=== PATIENT | female | born 1960 | race Caucasian/White ===

== ENCOUNTER → 2016-10-02 09:08 | Day surgery (SDC) | payer BC ==
[~2016-10-02 09:08] MED LIST: Buffered Lidocaine 1% SYR 3ML* 3 ML/SYR SYRINGE INTRADERM ONE; Buffered Lidocaine 1% SYR 3ML* 3 ML/SYR SYRINGE ONE; Bupivacaine 0.25% SDV* 30 ML ONE; Dexamethasone IV* 4 MG/ML 1 ML (4 MG) ONE; Famotidine IV* 10 MG/ML 2 ML (20 mg) IV ONE; Famotidine IV* 10 MG/ML 2 ML (20 mg) ONE; KETAMINE HCL* 50 MG/ML 10 ML VIAL ONE; Ketorolac INJ* 30 MG/ML 1 ML VIAL ONE; Labetalol IV* 5 MG/ML 20 ML VIAL ONE; Lidocaine 1% INJ* 10 MG/ML 30 ML SDV ONE; Lidocaine 2% PF* 10 ML AMP ONE; Midazolam* 1 MG/ML 5 ML VIAL (5 MG) ONE; Ondansetron INJ* 2 MG/ML VIAL ONE; PROCHLORPERAZINE INJ 5 MG/ML 2 ML VIAL IV PRN; Propofol* 10 MG/ML 20 ML BTL IV PUSH ONE; fentaNYL* 50 MCG/ML 2 ML VIAL (100 MCG VIAL) IV PRN; fentaNYL* 50 MCG/ML 2 ML VIAL (100 MCG VIAL) ONE; oxyCODONE/Acetamin 5/325 MG* TAB PO PRN
[2016-10-02 11:07] VITALS: BP 131/70
--- NOTE | 2016-10-03 06:08 | OP ---
DATE OF PROCEDURE: 10/02/16 - [facility] DATE OF : 62 SURGEON: Fabián Ramos DPM. ANESTHESIOLOGIST: Blu Fallon MD ANESTHESIA: MAC local. PRE-OP DIAGNOSIS: Epidermoid cyst, right fourth toe. POST-OP DIAGNOSES: Epidermoid cyst, right fourth toe. OPERATIVE PROCEDURE: Excision of the epidermoid cyst, right fourth toe. ESTIMATED BLOOD LOSS: Less than 10 cc. IV FLUIDS: LR 1000 cc. DRAINS: None. SPECIMENS: Epidermoid cyst, right fourth toe. DESCRIPTION OF PROCEDURE: The patient was taken to the operating room, was placed in a supine position. Time-out was called and OR team agreed. The right fourth toe was then blocked with 3 cc of 1% lidocaine plain in a ring block fashion. The base of the toe, the foot was then prepped and draped in sterile manner. The right foot was then exsanguinated with an Esmarch bandage and the cuff was then inflated to 250 mmHg. Attention was then paid to the distal aspect of the right fourth toe where there is epidermoid cyst, size of 0.8 x 3.7 cm. A semi-elliptical incision was made in a fishmouth fashion with a #15 blade with a minimum of 2 mm margins cephalad and caudal, and the lateral and medial margins have at least 5 to 7 mm margins to complete the semi- elliptical incision. I proceeded to dissect down to subcutaneous tissue, remove the dermal lesion, inspected the underlying subcutaneous, it does not appear to go beyond the dermis. Once it was deemed that the entire lesion was removed and the procedure was then completed, I irrigated the site and closed the wound with 4-0 nylon in simple sutures. The patient tolerated the procedure well and the cuff was deflated. I injected a postsurgical local block with 2 cc of 0.25% Marcaine plain and 1 cc of 4 mg of dexamethasone phosphate . The patient tolerated the procedure well. The toe was then placed in a dry sterile dressing. The patient was then taken to Recovery in stable condition, was then later discharged in stable condition as well. I will follow her up in my office in 3 days. [id number]/CPS #: [id number] MTDD
== END | disposition home or self-care (01) ==
LOC: OR 09:08
PROVIDERS: ATTEND Podiatrist
DX: D23.71 Other benign neoplasm of skin of right lower limb, including hip (principal); F17.210 Nicotine dependence, cigarettes, uncomplicated; E78.5 Hyperlipidemia, unspecified
CPT/HCPCS: 88304; J1100; J1885; J2001; J2250; J2405; J2704; J3010

== ENCOUNTER 2017-06-19 11:04 | Observation (INO) | payer BC ==
[2017-06-19] MEDS ORDERED: Albuterol/Ipratropium NEB.SOL* Albuterol 2.5 MG/Ipratropium 0.5 MG 3 ML INH ONE ×3 (12:01→14:45)
[2017-06-19] MEDS ORDERED: Albuterol/Ipratropium NEB.SOL* Albuterol 2.5 MG/Ipratropium 0.5 MG 3 ML ONE (12:12)
[2017-06-19 12:41] LABS: Hematocrit 41 % (35-47); Hemoglobin 13.4 g/dl (12.0-16.0); Mean Corpuscular HGB Conc 33 g/dl (31-36); Mean Corpuscular Hemoglobin 29 pg (27-31); Mean Corpuscular Volume 88 fL (80-97); Mean Platelet Volume 10 um3 (7.4-10.4); Red Blood Count 4.59 10^6/ul (4.0-5.4); Red Cell Distribution Width 15 % (10.5-15); White Blood Count 14.1 10^3/ul (3.5-10.8)
--- NOTE | 2017-06-19 12:53 | RAD ---
INDICATION: 3 weeks cough, shortness of breath. Bronchitis. History of tobacco use. Cardiovascular disease. COMPARISON: December 03, 2013 TECHNIQUE: Dual energy PA and routine lateral views of the chest were obtained. REPORT: Both diffuse mild prominence of the interstitial markings and patchy rarefaction of the mid to upper lung zone interstitial markings. No alveolar consolidation concerning for pneumonia. Negative for focal pulmonary lesions. Negative for pleural effusion or pneumothorax. The heart, pulmonary vasculature, and mediastinal contours are unremarkable. IMPRESSION: 1. No evidence for pneumonia. 2. Chronic mildly coarse interstitial markings and patchy rarefaction of upper lung zone markings likely reflecting chronic obstructive pulmonary disease and emphysema.
[2017-06-19 13:22] LABS: Albumin 3.7 g/dL (3.2-5.2); BUN/Creatinine Ratio 15.1 (8-20); Calcium 9.1 mg/dL (8.6-10.3); EGFR African American 106.1 (>60); EGFR Non-African American 82.5 (>60); Globulin 2.7 g/dL (2-4); Potassium 4.2 mmol/L (3.5-5.0); Total Bilirubin 0.5 mg/dL (0.2-1.0); Total Protein 6.4 g/dL (6.4-8.9)
[2017-06-19] MEDS ORDERED: methylPREDNISolone 125 MG* 2 ML VIAL IV ONE (13:40)
[2017-06-19] MEDS ORDERED: Albuterol/Ipratropium NEB.SOL* Albuterol 2.5 MG/Ipratropium 0.5 MG 3 ML INH PRN (18:07)
[2017-06-19] MEDS ORDERED: Acetaminophen TAB* 325 MG PO PRN (18:07)
[2017-06-19] MEDS ORDERED: guaiFENesin LIQ* 100 MG/5 ML UDC PO PRN (18:08)
[2017-06-19] MEDS ORDERED: Benzonatate CAP* 100 MG PO PRN (18:08)
[2017-06-19] MEDS ORDERED: Docusate CAP* 100 MG PO PRN (18:11)
[2017-06-19] MEDS ORDERED: Levofloxacin 750 MG IVPREMIX(* 750 MG/150 ML BAG IVPB SCH (19:00)
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
[2017-06-19] MEDS: methylPREDNISolone 125 MG* 2 ML VIAL IV SCH (19:29)
[2017-06-19] MEDS ORDERED: methylPREDNISolone SOD 40 MG* 1 ML VIAL IV SCH (20:00)
[2017-06-19] MEDS: Heparin VIAL(*) 5000 UNITS/ML VIAL (FIVE THOUSAND) SUBCUT SCH (20:21)
--- NOTE | 2017-06-19 22:06 | HP ---
CC: Dr. Matteo Parikh* [facility] MEDICINE HISTORY AND PHYSICAL: DATE OF ADMISSION: 06/19/17 PRIMARY CARE PHYSICIAN: Dr. Matteo Parikh. ATTENDING PHYSICIAN: Dr. Harry Lees* (dictation provided by Nancy Estrada NP ). CHIEF COMPLAINT: Cough and shortness of breath. HISTORY OF PRESENT ILLNESS: Ms. Ramirez is a 57-year-old female, who is a long- term smoker, who suspects she has COPD, though she does not have a diagnosis as such. She also has history of hyperlipidemia and depression. She states she has been feeling unwell for about 3 weeks, although she has been feeling much worse over the past 2 weeks. She reports having a cough, shortness of breath, and wheezing. She has had no fever. She went to see the PA, Mr. Noble, on 06/14/17, at which time, she was started on albuterol, prednisone, and amoxicillin. She has taken that with little effect. In fact, she states that she is feeling worse. She ultimately decided to come to the emergency room today when it was the third night in which she was not able to sleep very well at all due to persistent cough and shortness of breath. She denies any other complaints. She has no chest pain. She has no nausea, vomiting, abdominal pain. She has been tolerating oral intake well. In the emergency room, Ms. Ramirez had a chest x-ray, which showed no infiltrate. She had labs that showed leukocytosis of 14.1. She was noted to have an O2 saturation of 87% on room air, but she did respond well to 2 L nasal cannula with O2 saturation up to 93%. She is tachycardic with a heart rate into the 120s, blood pressure stable systolically at about 115. PAST MEDICAL HISTORY: 1. Questionable COPD with long-term smoking history. 2. Hyperlipidemia. 3. Depression. 4. History of partial hysterectomy due to fibroid tumor. MEDICATIONS: 1. B-complex with C 1 cap p.o. q.a.m. 2. Ibuprofen 200 mg p.o. daily p.r.n. 3. Loratadine with pseudoephedrine 1 tab p.o. q.a.m. 4. Naproxen 220 mg p.o. daily p.r.n. 5. Butler-3 fatty acid 2000 mg p.o. q.a.m. 6. Wheat dextrin 1 teaspoonful p.o. daily p.r.n. 7. Atorvastatin 40 mg p.o. daily. 8. Bupropion 100 mg p.o. q.a.m. 9. Docusate 100 mg p.o. q.a.m. 10. Latuda 20 mg p.o. q.p.m. 11. Sertraline 45 mg p.o. q.a.m. ALLERGIES: To ERYTHROMYCIN. FAMILY HISTORY: The patient reports her mother related to brain aneurysm at age 66 and father related to a stroke at 73. SOCIAL HISTORY: The patient is a long-term smoker, started at age 15. She is currently in about 10 cigarettes per day, although she is only down to about 1 a day while she has been ill. She reports alcohol intake about 5 shots of liquor per week. She is employed at a local [employer]. She states that her friend, Samia Saxena, would be the healthcare proxy. REVIEW OF SYSTEMS: A 14-point review of systems was completed with Ms. Ramirez and all those mentioned above were negative. PHYSICAL EXAMINATION GENERAL: Ms. Ramirez is sitting in bed. She is in no acute distress, but coughing frequently. VITAL SIGNS: Temperature 98.4, heart rate 119, respiratory rate 22, O2 saturation 90% on 2 L nasal cannula, blood pressure 112/59. LUNGS: Coarse bilaterally with wheezing and rhonchi throughout. There is good aeration and there is no accessory muscle use. She is able to speak in complete sentences. HEART: S1, S2. No murmur, rub, or gallop, and regular. ABDOMEN: Soft, nontender, with bowel sounds positive x4. EXTREMITIES: No cyanosis. No edema. NEURO: She is alert, she is oriented x3. She moves all extremities equally. There is no facial asymmetry or focal weakness. Extraocular movements are intact. SKIN: Intact. DIAGNOSTIC STUDIES/LAB DATA: Sodium 133, potassium 4.2, chloride 100, serum bicarbonate 27, BUN 11, creatinine 0.73, glucose 148, lactic acid 1.2. WBC 14.1 , hemoglobin 13.4, hematocrit 41, platelet count 317. The chest x-ray is read as clear with no evidence of infiltrate. ASSESSMENT AND PLAN: Ms. Ramirez is a 57-year-old female with long-term smoking history, who presents today to the hospital with persistent cough, wheezing, and shortness of breath, found to be hypoxic on room air, despite treatment for 5 days with albuterol, prednisone, and amoxicillin outpatient. Our plans are for observation in the hospital for the followin. Acute on chronic bronchitis: The patient states that she has had several episodes in the past like this and I thought she is very prone to bronchitis. I suspect that she does have a component of chronic obstructive pulmonary disease. Plans for her to be treated with Solu-Medrol as she has already had prednisone outpatient 60 mg q.8. She will have Levaquin, DuoNeb nebulizers, and oxygen p.r.n. 2. Depression. Continue home Latuda and sertraline. 3. DVT prophylaxis. With heparin subcu. 4. Code status is full code. TIME SPENT: Approximately 60 minutes was spent in admission of this patient, more than half of the time was spent with the patient at the bedside reviewing the events leading up to this hospitalization, performing the physical examination, and reviewing the plan of care. NANCY ESTRADA NP [id number]/CPS #: [id number] DEE
--- NOTE | 2017-06-19 23:49 | PN ---
I, Brandy Justice, scribed for Dewayne Lowery MD on 06/19/17 at 1403 . Progress Note - Progress Note Date of Service: 06/19/17 Note: Sign off from Bovalino. Upon examination: Diffuse wheezes, borderline tachycardic at 105 BPM, and 02sat of 89/90. She was given more duonebs and some solumedrol but her clinical condition did not really change. Consults: Consult with Dr. Lees (hospitalist) at 1714. He agrees to admit pt. She will be admitted in stable condition with a diagnosis of COPD exacerbation. The documentation as recorded by the ishanibeReshma Emily accurately reflects the service I personally performed and the decisions made by me, Dewayne Lowery MD.
[2017-06-20] MEDS: Heparin VIAL(*) 5000 UNITS/ML VIAL (FIVE THOUSAND) SUBCUT SCH (05:00)
[2017-06-20] MEDS: methylPREDNISolone 125 MG* 2 ML VIAL IV SCH ×2 (05:00→12:05)
[2017-06-20] MEDS ORDERED: Atorvastatin* 40 MG TAB PO SCH (09:00)
[2017-06-20] MEDS ORDERED: Sertraline* 25 MG TAB PO SCH (09:00)
[2017-06-20] MEDS ORDERED: buPROPion SR TAB.SR* 100 MG PO SCH (09:00)
[2017-06-20 12:08] VITALS: BP 134/72
--- NOTE | 2017-06-20 12:12 | PN ---
Subjective Date of Service: 06/20/17 Interval History: Ms. Ramirez states that she is feeling much better today. She has ambulated around the unit without significant SETHI or any hypoxia. She denies other complaint including chest pain, nausea or abdominal pain. She is tolerating oral intake well. Objective Active Medications: Acetaminophen (Tylenol Tab*) 650 mg PO Q6H PRN Albuterol/Ipratropium (Duoneb (Albuterol 2.5 Mg/Ipratropium 0.5 Mg)) 1 neb INH Q4H PRN Atorvastatin Calcium (Lipitor*) 40 mg PO DAILY SEAN Benzonatate (Tessalon Cap*) 100 mg PO BID PRN Bupropion HCl (Wellbutrin Sr Tab*) 100 mg PO QAM SEAN Docusate Sodium (Colace Cap*) 100 mg PO QAM PRN Guaifenesin (Robitussin*) 5 ml PO Q6H PRN Heparin Sodium (Porcine) (Heparin Vial(*)) 5,000 units SUBCUT Q8HR SEAN Levofloxacin/Dextrose (Levaquin 750 Mg Ivpremix(*)) 750 mg in 150 mls @ 100 mls /hr IVPB Q24H SEAN Lurasidone HCl (Latuda (Nf)) 20 mg PO QPM SEAN Methylprednisolone Sodium Succinate (Solu-Medrol 125mg *) 60 mg IV Q8H [facility] Vital Signs 06/19/17 06/19/17 06/19/17 19:12 19:43 19:49 Temperature 98.0 F 98.0 F Pulse Rate 122 111 122 Respiratory 18 16 20 Rate Blood Pressure 141/79 141/79 (mmHg) O2 Sat by Pulse 95 94 95 Oximetry 06/19/17 06/19/17 06/20/17 20:13 23:22 00:00 Temperature 98.1 F 98.2 F Pulse Rate 107 82 Respiratory 12 15 Rate Blood Pressure 134/64 132/66 (mmHg) O2 Sat by Pulse 94 97 94 Oximetry 06/20/17 06/20/17 06/20/17 03:46 05:24 07:54 Temperature 98.5 F 98.4 F Pulse Rate 82 84 90 Respiratory 15 16 18 Rate Blood Pressure 136/60 138/76 (mmHg) O2 Sat by Pulse 92 99 97 Oximetry 06/20/17 08:30 Temperature Pulse Rate 84 Respiratory 16 Rate Blood Pressure (mmHg) O2 Sat by Pulse 99 Oximetry Oxygen Devices in Use Now: None Appearance: Female sitting up in bed in NAD Eyes: No Scleral Icterus Ears/Nose/Mouth/Throat: Mucous Membranes Moist Neck: Trachea Midline Respiratory: Symmetrical Chest Expansion and Respiratory Effort, - - Minimal wheezing Cardiovascular: NL Sounds; No Murmurs; No JVD, No Edema Abdominal: NL Sounds; No Tenderness; No Distention Lymphatic: No Cervical Adenopathy Extremities: No Edema Skin: No Rash or Ulcers Neurological: Alert and Oriented x 3, NL Muscle Strength and Tone Nutrition: Taking PO's Result Diagrams: 06/19/17 12:30 06/19/17 12:30 Additional Lab and Data: Lab Results 06/19/17 06/19/17 06/19/17 Range/Units 12:30 12:30 12:30 WBC 14.1 H (3.5-10.8) 10^3/ul RBC 4.59 (4.0-5.4) 10^6/ul Hgb 13.4 (12.0-16.0) g/dl Hct 41 (35-47) % MCV 88 (80-97) fL MCH 29 (27-31) pg MCHC 33 (31-36) g/dl RDW 15 (10.5-15) % Plt Count 317 (150-450) 10^3/ul MPV 10 (7.4-10.4) um3 Neut % (Auto) 75.3 (38-83) % Lymph % (Auto) 16.7 L (25-47) % [place] % (Auto) 7.3 (1-9) % Eos % (Auto) 0.4 (0-6) % Baso % (Auto) 0.3 (0-2) % Absolute Neuts (auto) 10.6 H (1.5-7.7) 10^3/ul Absolute Lymphs (auto) 2.3 (1.0-4.8) 10^3/ul Absolute Monos (auto) 1.0 H (0-0.8) 10^3/ul Absolute Eos (auto) 0.1 (0-0.6) 10^3/ul Absolute Basos (auto) 0 (0-0.2) 10^3/ul Absolute Nucleated RBC 0.01 10^3/ul Nucleated RBC % 0 Sodium 133 (133-145) mmol/L Potassium 4.2 (3.5-5.0) mmol/L Chloride 100 L (101-111) mmol/L Carbon Dioxide 27 (22-32) mmol/L Anion Gap 6 (2-11) mmol/L BUN 11 (6-24) mg/dL Creatinine 0.73 (0.51-0.95) mg/dL Est GFR ( Amer) 106.1 (>60) Est GFR (Non-Af Amer) 82.5 (>60) BUN/Creatinine Ratio 15.1 (8-20) Glucose 148 H (70-100) mg/dL Lactic Acid 1.2 (0.5-2.0) mmol/L Calcium 9.1 (8.6-10.3) mg/dL Total Bilirubin 0.50 (0.2-1.0) mg/dL AST 14 (13-39) U/L ALT 18 (7-52) U/L Alkaline Phosphatase 79 (34-104) U/L Total Protein 6.4 (6.4-8.9) g/dL Albumin 3.7 (3.2-5.2) g/dL Globulin 2.7 (2-4) g/dL Albumin/Globulin Ratio 1.4 (1-3) Microbiology and Other Data: Microbiology 06/19/17 20:20 Influenza Types A,B Antigen (RICARDO) - Final Nasal Specimen received for Influenza A/B Molecular testing Assess/Plan/Problems-Billing Assessment: Ms. Ramirez is a 57 yo female with a PMH of chronic bronchitis and continued smoking who was placed on observation on 06/19/17 for COPD excarbation. - Patient Problems (1) COPD exacerbation Comment: - Much improved overnight. - Continue prednisone taper, levaquin, albuterol and guaifenesin. - Also starting spiriva, recommend to see Dr. Marcano. (2) Hyperlipidemia Comment: - Continue atorvastatin. (3) Depression Comment: - Continue sertraline and latuda. (4) DVT prophylaxis Comment: - Heparin SQ. (5) Full code status Status and Disposition: OBV. Discharge to home.
[2017-06-20] MEDS ORDERED: LURASIDONE 20 MG PO SCH (18:00)
--- NOTE | 2017-06-20 23:28 | DS ---
CC: Dr. Parikh* DISCHARGE SUMMARY: DATE OF ADMISSION: 06/19/17 DATE OF DISCHARGE: 06/20/17 PRIMARY CARE PHYSICIAN: Dr. Parikh. ATTENDING PHYSICIAN: Dr. Dustin Escobar* (dictation provided by Nancy Estrada NP) PRIMARY DIAGNOSIS: Acute on chronic bronchitis. SECONDARY DIAGNOSES: 1. Depression. 2. Hyperlipidemia. 3. History of partial hysterectomy due to fibroid tumor. MEDICATIONS AT TIME OF DISCHARGE: 1. Prednisone via taper. 2. Levaquin 750 mg p.o. daily x5 days. 3. Albuterol p.r.n. 4. Guaifenesin p.r.n. 5. Spiriva 1 cap inhaled p.o. daily. 6. B complex with C 1 cap p.o. q.a.m. 7. Ibuprofen 200 mg p.o. daily p.r.n. 8. Loratadine with pseudoephedrine 1 tab p.o. q.a.m. 9. Naproxen 220 mg p.o. daily p.r.n. 10. [place] 3 fatty acid 2000 mg p.o. q.a.m. 11. Wheat dextrin 1 teaspoonful p.o. daily p.r.n. 12. Atorvastatin 40 mg p.o. daily. 13. Bupropion 100 mg p.o. q.a.m. 14. Docusate 100 mg p.o. q.a.m. 15. Latuda 20 mg p.o. q.p.m. 16. Sertraline 37.5 mg p.o. q.a.m. HOSPITAL COURSE: Ms. Ramirez is a 57-year-old female with longstanding history of smoking with suspected chronic bronchitis who presented to the hospital with concern for cough, shortness of breath. Please see the dictated H and P from myself for complete details. In brief, the patient had had symptoms for about 3 weeks on the Wednesday prior to admission. She was seen by her primary care provider who started her on a prednisone and amoxicillin as well as albuterol inhaler. She states that she has not really had any relief at all and presented to the emergency room after she was not able to sleep due to cough and shortness of breath. In the ED, she had a chest x-ray that showed no acute abnormality. Her labs were only remarkable for a leukocytosis with a white blood cell count of 14.1, in the setting of prednisone use outpatient. Her flu swab was negative. Ms. Ramirez was given Solu-Medrol in the emergency room and then started on IV Solu - Medrol q.8 hours overnight as well as Levaquin and duo nebulizers. With this , she has had slow but steady improvement. Her lungs are essentially clear this morning. She has been able to ambulate in the hallways without any hypoxia or significant dyspnea on exertion. Ms. Ramirez is medically stable for discharge to home. I have counseled her at length regarding smoking cessation and strongly encouraged her to follow up with Dr. Parikh regarding possibility of using nicotine replacement therapies, Wellbutrin or Chantix if she is so interested. She did not want a prescription for that today. I have also written a prescription for Spiriva to help prevent future COPD exacerbations. Finally, I am strongly encouraging her to follow up with Dr. Marcano from Pulmonology to help evaluate her likely COPD and assist with management going forward. TIME SPENT: Approximately 60 minutes were spent on the discharge of this patient, more than half time spent with the patient at bedside reviewing the events leading up to this hospitalization, performing the physical examination and review the plan of care. NANCY ESTRADA NP [id number]/[facility] #: [id number] DEE
== END 2017-06-20 13:20 | disposition home or self-care (01) ==
LOC: ED 11:04 → MED 18:04
PROVIDERS: ADMIT Internal Medicine; ATTEND Internal Medicine
DX: J20.9 Acute bronchitis, unspecified (principal); J44.0 Chronic obstructive pulmonary disease with (acute) lower respiratory infection; J44.1 Chronic obstructive pulmonary disease with (acute) exacerbation; E78.5 Hyperlipidemia, unspecified; F32.9 Major depressive disorder, single episode, unspecified; Z79.899 Other long term (current) drug therapy; R06.02 Shortness of breath; Z88.1 Allergy status to other antibiotic agents; F17.210 Nicotine dependence, cigarettes, uncomplicated
CPT/HCPCS: 36415; 71020; 80053; 83605; 85025; 87502; 94640; 94760; 96365; 96372; 96375; 99284; A9270-GY; G0378; J1644; J2930